=== PATIENT | female | born 1990 | race Two or more races ===

== ENCOUNTER 2016-12-14 08:05 | Emergency (ER) | payer OTHER ==
[2016-12-14 08:20] VITALS: BP 117/76
[2016-12-14] MEDS ORDERED: Ketorolac 60 MG/2 ML SDV IM ONE (08:39)
--- NOTE | 2016-12-14 08:45 | EDM.PDOC ---
ED HPI GENERAL MEDICAL PROBLEM - General Chief Complaint: Wound Recheck Stated Complaint: PAIN Time Seen by Provider: 12/14/16 08:17 - History of Present Illness INITIAL COMMENTS - FREE TEXT/NARRATIVE: HISTORY AND PHYSICAL: History of present illness: The patient is a 26-year-old female who is status post on December 05 of a full term infant which she is breast-feeding and presents with complaints of drainage from the wound and redness to the incision area that started yesterday. The patient states that she had her performed in [place] by Dr. Rowell (approx 3 hrs from [place]) and had no complications and went home on schedule. She says she's been doing very well and the child is breast- feeding well. She has not had fevers chills cough chest pain or abdominal pain and no vomiting or diarrhea. She has had some constipation. She is no urinary complaints. She states she's been trying to do more walking and trying to be more active and up until yesterday had no complaints. She noted yesterday that there was some discomfort at the incision and that there was some drainage and redness to the area. She's concerned about the color of the incision. She otherwise denies any internal abdominal pain or pelvic pain and she has been having only scant vaginal bleeding postoperatively. She says she tried to contact her [facility] and she was called today so she came here for evaluation. Please note that once she noticed the changes in the incision she also had no fever vomiting or abdominal complaints. Review of systems: As per history of present illness and below otherwise all systems reviewed and negative. Past medical history: As per history of present illness and as reviewed below otherwise noncontributory. Surgical history: As per history of present illness and as reviewed below otherwise noncontributory. Social history: No reported history of drug or alcohol abuse. Family history: As per history of present illness and as reviewed below otherwise noncontributory. Physical exam: General: Well-developed well-nourished female who is nontoxic; vital signs of a noted by me HEENT: Atraumatic, normocephalic, negative for conjunctival pallor or scleral icterus, mucous membranes moist, throat clear, neck supple, nontender, trachea midline. Lungs: Clear to auscultation, breath sounds equal bilaterally, chest nontender. Heart: S1S2, regular, negative for clicks, rubs, or JVD. Abdomen: Soft, nondistended, nontender. Bowel sounds are slightly hypoactive Negative for masses or hepatosplenomegaly. Negative for costovertebral tenderness. At the Pfannenstiel incision Steri-Strips are seen in the majority of the wound looks clean dry and intact without any erythema. At the left lateral aspect there is about 4 cm of the incision which has partially opened and there is serosanguineous drainage. There is no gross fluctuance at the incision and at this left lateral aspect there is some surrounding skin erythema and tenderness. I am unable to express any drainage from this area. Pelvis: Stable nontender. Genitourinary: Deferred. Rectal: Deferred. Extremities: Atraumatic, negative for cords or calf pain. Neurovascular unremarkable. Neuro: Awake, alert, oriented. Cranial nerves II through XII unremarkable. Cerebellum unremarkable. Motor and sensory unremarkable throughout. Exam nonfocal. Diagnostics: CBC with differential Therapeutics: Toradol I discussed with the patient that this is likely a localized wound dehiscence with some early cellulitis and that we would treat it with antibiotics. I strongly advised her about reasons to return to the ED (especially fever and deep abdominal pain) and I also advised her that she needs to contact her OB M.D. tomorrow in the office for guidance for followup. If her OB is unavailable then she needs to connect with one of her partners and needs to be seen in the clinic for followup care. Impression: incision postop wound infection Definitive disposition and diagnosis as appropriate pending reevaluation and review of above. abdomen,lower Pain Score (Numeric/FACES): 5 - Related Data Allergies Allergy/AdvReac Type Severity Reaction Status Date / Time No Known Allergies Allergy Verified 12/14/16 08:15 Past Medical History - Past Health History Medical/Surgical History: Denies Medical/Surgical History SLABBER History: Reports: Other (see below) Other OB/BYN History: CS on 12/05/2016 Social & Family History - Family History Family Medical History: Noncontributory - Tobacco Use Smoking Status *Q: Never Smoker - Recreational Drug Use Recreational Drug Use: No ED ROS GENERAL - Review of Systems Review Of Systems: ROS reveals no pertinent complaints other than HPI. ED EXAM, GENERAL - Physical Exam Exam: See Below (See dictation) Course - Vital Signs Last Recorded V/S: Last Vital Signs Temp 37.0 C 12/14/16 08:17 Pulse 88 12/14/16 08:17 Resp 18 12/14/16 08:17 BP 117/76 12/14/16 08:17 Pulse Ox 97 12/14/16 08:17 - Orders/Labs/Meds Labs: Laboratory Tests 12/14/16 Range/Units 08:46 WBC 7.48 (4.0-11.0) K/uL RBC 3.90 L (4.30-5.90) M/uL Hgb 11.8 L (12.0-16.0) g/dL Hct 36.0 (36.0-46.0) % MCV 92.3 (80.0-98.0) fL MCH 30.3 (27.0-32.0) pg MCHC 32.8 (31.0-37.0) g/dL RDW Std Deviation 45.0 (28.0-62.0) fl RDW Coeff of Marcy 13 (11.0-15.0) % Plt Count 312 (150-400) K/uL MPV 10.60 (7.40-12.00) fL Neut % (Auto) 64.8 (48.0-80.0) % Lymph % (Auto) 23.3 (16.0-40.0) % [place] % (Auto) 7.0 (0.0-15.0) % Eos % (Auto) 4.5 (0.0-7.0) % Baso % (Auto) 0.4 (0.0-1.5) % Neut # (Auto) 4.9 (1.4-5.7) K/uL Lymph # (Auto) 1.7 (0.6-2.4) K/uL [place] # (Auto) 0.5 (0.0-0.8) K/uL Eos # (Auto) 0.3 (0.0-0.7) K/uL Baso # (Auto) 0.0 (0.0-0.1) K/uL Nucleated RBC % 0.0 /100WBC Nucleated RBCs # 0 K/uL Meds: Medications Discontinued Medications Generic Name Dose Route Start Last Admin Trade Name Freq PRN Reason Stop Dose Admin Ketorolac Tromethamine 60 mg 12/14/16 08:39 12/14/16 09:10 Toradol IM 12/14/16 08:40 Not Given ONETIME ONE Departure - Departure Time of Disposition: 09:16 Disposition: Home, Self-Care 01 Condition: good Clinical Impression: Wound infection after surgery Qualifiers: Encounter type: initial encounter Qualified Code(s): T81.4XXA - Infection following a procedure, initial encounter Referrals: PCP,None [Primary Care Provider] - Forms: ED Department Discharge Additional Instructions: The following information is given to patients seen in the emergency department who are being discharged to home. This information is to outline your options for follow-up care. We provide all patients seen in our emergency department with a follow-up referral. The need for follow-up, as well as the timing and circumstances, are variable depending upon the specifics of your emergency department visit. If you don't have a primary care physician on staff, we will provide you with a referral. We always advise you to contact your personal physician following an emergency department visit to inform them of the circumstance of the visit and for follow-up with them and/or the need for any referrals to a consulting specialist. The emergency department will also refer you to a specialist when appropriate. This referral assures that you have the opportunity for followup care with a specialist. All of these measure are taken in an effort to provide you with optimal care, which includes your followup. Under all circumstances we always encourage you to contact your private physician who remains a resource for coordinating your care. When calling for followup care, please make the office aware that this follow-up is from your recent emergency room visit. If for any reason you are refused follow-up, please contact the [facility] emergency department at and ask to speak to the emergency department charge nurse. [facility] Primary care- Internal Medicine and Family [facility] [address] [place] [id number] [facility] Primary care-Women's Health [address] [id number] Please call your OB M.D. tomorrow connect for further care and evaluation as we discussed. Take antibiotics as directed and keep the area clean and dry. Return to ER as needed and as discussed
== END 2016-12-14 09:25 | disposition home or self-care (01) ==
LOC: MW.ED 08:05
DX: T81.4XXA Infection following a procedure, initial encounter (principal)
CPT/HCPCS: 36415; 85025; 99283